=== PATIENT | female | born 1955 | race Hispanic/Latino ===

== ENCOUNTER 2017-08-24 12:51 | Outpatient (CLI) | payer MEDICARE | END 2017-08-24 12:52 | disposition home or self-care (01) | LOC: LABHHL 12:51 | DX: C79.51 Secondary malignant neoplasm of bone (principal); C79.81 Secondary malignant neoplasm of breast; C50.212 Malignant neoplasm of upper-inner quadrant of left female breast; M87.10 Osteonecrosis due to drugs, unspecified bone; G89.3 Neoplasm related pain (acute) (chronic); I42.8 Other cardiomyopathies; E66.9 Obesity, unspecified | CPT/HCPCS: 88361 ==